=== PATIENT | female | born 1990 | race Caucasian/White ===

== ENCOUNTER 2017-03-03 00:18 | Inpatient (IN) | payer OTHER ==
[~2017-03-03] VITALS: Ht 162.6 cm; Wt 95.5 kg
[~2017-03-03 00:18] MED LIST: CLINDAMYCIN HC300 M1 PO; PERCOCET 325 MG1 TA2 PO; TRAMADOL HCL50 M1 PO
--- NOTE | 2017-03-03 00:21 | NUR ---
PT BIBA ON POLICE PAPER AFTER HAVING FOUND TO HAVE SENT TEXT MESSAGES TO A FRIEND STATING SHE WAS PLANNING ON OVERDOSEING ON XANAS. PT ARRIVES SLIGHTLY AGITATED, DENIES SI/HI AT THIS TIME. SECURITY AT BEDSIDE FOR WANDING.
--- NOTE | 2017-03-03 00:24 | ED AMS/SEIZURE/WEAK/DIZZY ---
History of Present Illness General Chief Complaint: General Adult Stated Complaint: ?OVERDOSE,DENTAL PAIN Source: patient, EMS, police Exam Limitations: no limitations Vital Signs & Intake/Output Vital Signs & Intake/Output Vital Signs Date Time Temp Pulse Resp B/P B/P Pulse O2 O2 Flow FiO2 Mean Ox Delivery Rate 03/03 1018 96.2 90 18 140/81 07 1016 96.2 90 18 140/81 98 03/03 0622 98.0 97 18 137/90 99 Room Air 03/03 0148 98.5 115 20 143/100 07 0105 98.5 115 20 143/100 98 Room Air Allergies Coded Allergies: MDX - Penicillin (PENICILLIN) (Intermediate, DIZZY AND VOMIT 12/07/15) Reconcile Medications Amitriptyline HCl 10 MG TABLET 10 MG PO DAILY HTN (Reported) Amitriptyline HCl 25 MG TABLET 25 MG PO DAILY HTN (Reported) Amlodipine Besylate 2.5 MG TABLET 2.5 MG PO DAILY HTN (Reported) Clindamycin HCl 300 MG CAPSULE 1 CAP PO 4 TIMES/DAY DENTAL INFECTION Clindamycin HCl 300 MG CAPSULE 1 CAP PO TID DENTAL INFECTION OXYCODONE HCL/ACETAMINOPHEN (Percocet 5-325 MG Tablet) 325 MG/5 MG TAB 1-2 TAB PO Q4-6 PRN PRN PAIN Pantoprazole Sodium 40 MG TABLET.DR 40 MG PO DAILY GERD (Reported) Risperidone 0.5 MG TABLET 0.5 MG PO DAILY MENTAL HEALTH (Reported) Sertraline HCl 50 MG TABLET 50 MG PO DAILY MENTAL HEALTH (Reported) Tramadol HCl 50 MG TABLET 1 TAB PO Q6HR PRN PAIN Triage Nurses Notes Reviewed? yes Onset: Gradual Duration: day(s): Injury Environment: home Severity: moderate Modifying Factors: Improves With: rest. Associated Symptoms: dental pain HPI: 26-year-old woman brought in by the police and the ambulance for concern about suicidal ideation and overdose. Per the police, she had sent suicidal text messages to a boyfriend. She also reported taking an overdose of prescription medications, possibly 14 pills. The patient denies this. She states that she has had dental pain in her right lower wisdom tooth. She's been taking ibuprofen to felice her symptoms without significant improvement. She states, "I think it's infected." She denies suicidality, homicidality, hallucinations, other drug abuse. (MIGUEL ADAMS,COSMO Grissom) Past History Travel History Traveled to [place] past 21 day No Medical History Any Pertinent Medical History? see below for history Neurological: NONE EENT: NONE Cardiovascular: NONE Respiratory: NONE Gastrointestinal: NONE Hepatic: NONE Renal: NONE Musculoskeletal: NONE Psychiatric: NONE Endocrine: NONE Blood Disorders: NONE Cancer(s): NONE BOARD FILLER/Reproductive: NONE Surgical History Surgical History: non-contributory Psychosocial History What is your primary language Guyanese Family History Hx Contributory? No (COSMO SHAH MD) Review of Systems Review of Systems Constitutional: Reports: no symptoms. EENTM: Reports: no symptoms. Respiratory: Reports: no symptoms. Cardiovascular: Reports: no symptoms. GI: Reports: no symptoms. Genitourinary: Reports: no symptoms. Musculoskeletal: Reports: no symptoms. Skin: Reports: no symptoms. Neurological/Psychological: Reports: no symptoms. Hematologic/Endocrine: Reports: no symptoms. Immunologic/Allergic: Reports: no symptoms. All Other Systems: Reviewed and Negative (COSMO SHAH MD) Physical Exam Physical Exam General Appearance: well developed/nourished, alert, awake, anxious Head: atraumatic, normal appearance Eyes: Bilateral: normal appearance. Ears, Nose, Throat: normal pharynx, normal ENT inspection Neck: normal inspection, supple, full range of motion Respiratory: normal breath sounds, chest non-tender, no respiratory distress, quiet respiration, lungs clear Cardiovascular: regular rate/rhythm Gastrointestinal: normal bowel sounds, soft, non-tender, no organomegaly Back: normal inspection, normal range of motion Extremities: normal range of motion Neurologic/Psych: no motor/sensory deficits, awake, alert, oriented x 3 Skin: intact, normal color, warm/dry Core Measures ACS in differential dx? No CVA/TIA Diagnosis: No Severe Sepsis Present: No Septic Shock Present: No (COSMO SHAH MD) Progress Differential Diagnosis: alcohol intoxication, drug intoxication, electrolyte imbalance, hypoglycemia Plan of Care: Orders Procedure Date/time Status Regular Diet 03/03 L Active Regular Diet 03/03 B Complete EKG 03/03 1047 Active Lab Add-on Test 03/03 1039 Active Patient Data - inpatient psych 03/03 1037 Active Admit to inpatient psych 03/03 1037 Active TSH REFLEX 03/03 0045 Active LIPID PANEL 03/03 0045 Active GLYCOSYLATED HGB 03/03 0045 Active Continuous Observation Monitor 03/03 0024 Active ED CRISIS PSYCH CONSULT 03/03 0024 Active URINE DRUG SCREEN FOR ER ONLY 03/03 0023 Complete ACETOMINOPHEN 03/03 0023 Active SALICYLATE 03/03 002 Active HUMAN BETA HCG SCREEN 03/03 0023 Active ETHANOL 03/03 0023 Active COMPREHENSIVE METABOLIC PANEL 03/03 002 Active CBC WITHOUT DIFFERENTIAL 03/03 002 Complete EKG 03/03 002 Active Vital Signs 03/03 UNK Active Nursing Misc 03/03 UNK Active CIWA 03/03 UNK Active Alternative Nursing Therapy 03/03 UNK Active Activity/Ambulation 03/03 UNK Active Current Medications Sig/Alexandre Start time Last Medication Dose Stop Time Status Admin Amitriptyline HCl 35 MG AT BEDTIME 03/03 2200 UNVr (Elavil 50 MG Tablet) Baclofen 10 MG Q6P PRN 03/03 1100 UNVr (Lioresal 10MG Tablet) Clonidine 0.1 MG Q6P PRN 03/03 1100 UNVr (Catapres) Dicyclomine HCl 20 MG Q6P PRN 03/03 1100 UNVr (Bentyl) Acetaminophen 650 MG Q6P PRN 03/03 1045 UNVr (Tylenol) Al Hydroxide/Mg 30 ML Q4-6 PRN PRN 03/03 1045 UNVr Hydroxide (Maalox Plus) Gabapentin 300 MG Q6P PRN 03/03 1045 UNVr (Neurontin) Hydroxyzine HCl 50 MG Q6P PRN 03/03 1045 UNVr (Atarax) Lorazepam 2 MG Q2P PRN 03/03 1045 UNVr (Ativan) Lorazepam 1 MG Q2P PRN 03/03 1045 UNVr (Ativan) Magnesium Hydroxide 30 ML AT BEDTIME PRN 03/03 1045 UNVr (Milk Of Magnesia) Risperidone 0.5 MG BID 03/03 1043 UNVr 03/03 (Risperidone) 1059 Folic Acid 1 MG DAILY 03/03 1042 UNVr 03/03 (Folic Acid) 03/05 1001 1059 Multivitamins 1 TAB DAILY 03/03 1042 UNVr 03/03 (Theragran Vitamins) 1059 Thiamine HCl 100 MG DAILY 03/03 1042 UNVr 03/03 (Vitamin B1) 03/05 1001 1059 Amlodipine Besylate 2.5 MG DAILY 03/03 1000 UNVr 03/03 (Norvasc) 1018 Hydroxyzine HCl 50 MG AT BEDTIME NEED.. 03/03 0100 UNVr (Atarax) Clindamycin 300 MG Q6 03/03 0056 UNVr 03/03 (Cleocin 150MG Cap) 0623 Laboratory Tests 03/03/17 0435: Urine Opiates Screen > 4000.00 H, Methadone Screen < 40, Barbiturate Screen < 60, Ur Phencyclidine Scrn < 6.00, Amphetamines Screen < 100, U Benzodiazepines Scrn < 85, Urine Cocaine Screen 698 H, Urine Cannabis Screen < 5.00 03/03/17 0045: Anion Gap 17 H, Estimated GFR > 60, BUN/Creatinine Ratio 11.3, Glucose 109 H, Hemoglobin A1c Pending, Calcium 9.9, Total Bilirubin 0.8, AST 38 H, ALT 50, Alkaline Phosphatase 84, Total Protein 7.5, Albumin 4.7, Globulin 2.8, Albumin/ Globulin Ratio 1.7, Triglycerides 192 H, Cholesterol 177, LDL Cholesterol, Calc 102, HDL Cholesterol 37 L, Cholesterol/HDL Ratio 5 H, TSH &T3 &Free T4 Intrp Pending, Total Beta HCG NEGATIVE, CBC w Diff NO MAN DIFF REQ, RBC 5.12, MCV 86.6 , MCH 29.6, RDW 12.9, MPV 7.6, Gran % 76.3 H, Lymphocytes % 19.2 L, Monocytes % 2.4, Eosinophils % 1.8, Basophils % 0.3, Absolute Granulocytes 9.4 H, Absolute Lymphocytes 2.4, Absolute Monocytes 0.3, Absolute Eosinophils 0.2, Absolute Basophils 0, PUBS MCHC 34.2, Salicylates < 1.0, Acetaminophen < 10.0 L , Serum Alcohol 36.0 Initial ED EKG: normal axis, normal intervals, normal p-waves, normal QRS complex, normal sinus rhythm Hand-Off Endorsed To: DARIUS ADAMS,SARAHI Gaston Endorsed Time: 0700 Pending: consult (MIGUEL ADAMS,COSMO Grissom) Repeat EKG: changed (NO LONGER TACHYCARDIC) Comments: 03/03/2017 11:14:24 AM patient signed out to me by Dr. Shah at shift guide changer. (DARIUS ADAMS,SARAHI Gaston) Departure Departure Disposition: STILL A PATIENT Condition: Stable Referrals: LYNDSEY HARTMAN (PCP/Family) Departure Forms: Customer Survey General Discharge Information Prescriptions: Current Visit Scripts Clindamycin HCl 1 CAP PO 4 TIMES/DAY #30 CAP (MIGUEL ADAMS,COSMO Grissom) Departure Clinical Impression Primary Impression: Depression Qualifiers: Depression Type: unspecified Qualified Code: F32.9 - Major depressive disorder, single episode, unspecified Secondary Impressions: Dental abscess, Polysubstance abuse Psych Admission Note Psychiatric Admission: I have reviewed all the pertinent lab results and diagnostic results. JACKIECHUY Ellis will be admitted to our inpatient Psychiatric unit for treatment and care. (DARIUS ADAMS,SARAHI Gaston)
--- NOTE | 2017-03-03 00:54 | NUR ---
PT CHANGED INTO BLUE SCRUBS. PT PLACED ON MACHINE CLEANER, [facility] AT BEDSIDE FOR PT EVAL
[2017-03-03] MEDS ORDERED: CLINDAMYCIN HC300 M1 PO (00:59)
[2017-03-03 01:05] LABS: ABSOLUTE BASOPHIL COUNT 0 /CUMM (0.0-0.2); ABSOLUTE EOSINOPHIL COUNT 0.2 /CUMM (0.0-0.7); ABSOLUTE GRANULOCYTE CT 9.4 /CUMM (1.4-6.5); ABSOLUTE LYMPH COUNT 2.4 /CUMM (1.2-3.4); ABSOLUTE MONOCYTE COUNT 0.3 /CUMM (0.10-0.60); BASOPHIL % 0.3 % (0.0-2.0); EOSINOPHIL % 1.8 % (0-5); GRANULOCYTE % 76.3 % (42.2-75.2); HEMATOCRIT 44.4 % (37-47); MEAN CORPUSCULAR HGB 29.6 PG (27.0-31.0); MEAN CORPUSCULAR HGB CONC 34.2 G/DL (33.0-37.0); MEAN CORPUSCULAR VOLUME 86.6 FL (81.0-99.0); MEAN PLATELET VOLUME 7.6 FL (7.4-10.4); PLATELET COUNT 285 /CUMM (130-400); RBC DISTRIBUTION WIDTH 12.9 % (11.5-14.5); RED BLOOD CELL CT 5.12 /CUMM (4.20-5.40); WHITE BLOOD CELL COUNT 12.3 /CUMM (4.8-10.8)
--- NOTE | 2017-03-03 01:14 | NUR ---
PT MEDICATED WITH ACTIVATED CHARCOAL PER EMAR
--- NOTE | 2017-03-03 01:49 | NUR ---
PT MEDICATED PER EMAR. PT REMAINS ST ON GRINDING WHEEL FACER. PT PROVIDED WITH BOXED LUNCH AND WATER
--- NOTE | 2017-03-03 02:05 | NUR ---
PT MOTHER TOOK ALL OF PTS VALUABLES HOME
--- NOTE | 2017-03-03 03:01 | NUR ---
PT ASLEEP AT THIS TIME W/RR NOTED. PT REMAINS ON HELICOPTER MECHANIC. NAD. SITTER IN ATTENDANCE.
[2017-03-03] MEDS ORDERED: AMITRIPTYLINE H10 M2 PO (04:01)
[2017-03-03] MEDS ORDERED: AMITRIPTYLINE H25 M2 PO (04:02)
[2017-03-03] MEDS ORDERED: RISPERIDONE0.5 M1 PO (04:02)
[2017-03-03] MEDS ORDERED: PANTOPRAZOLE SO40 M1 PO (04:03)
[2017-03-03] MEDS ORDERED: AMLODIPINE BES2.5 M1 PO (04:03)
[2017-03-03] MEDS ORDERED: SERTRALINE HCL50 MG PO (04:03)
--- NOTE | 2017-03-03 05:21 | NUR ---
PATIENT AWAKE, REQUESTING RN TO LOOK AT BLOOD DRAW SITE. PATIENT NOTED W/ SLIGHT BRUISING TO RIGHT AC, APPROX SIZE OF HALF DOLLAR COIN. DENIES PAIN W/ PALP TO SITE, ABLE TO BEND ARM W/O DIFFICULTY. WILL CONTINUE TO MONITOR. PATIENT RETURNS TO RESTING COMFORTABLY ON STRETCHER AT THIS TIME, REGULAR RESPIRATIONS. AWAITING CRISIS EVAL THIS AM.
--- NOTE | 2017-03-03 06:22 | NUR ---
AWOKE PATIENT FROM SLEEP TO MEDICATE W/ CLEOCIN PER EMAR. TOLERATED WELL. CALM AND COOPERATIVE.
--- NOTE | 2017-03-03 07:03 | NUR ---
ASSUMED CARE OF PT WHO IS CURRENTLY SLEEPING. RR EVEN AND UNLABORED. WAITING FOR INITIAL CRISIS EVALUATION
--- NOTE | 2017-03-03 08:14 | NUR ---
MOTHER DID NOT TAKE VALUABLES HOME, ONE BAG WITH PHONE, DRAFTER AND CIGARETTES PLACED IN SAFE
--- NOTE | 2017-03-03 08:20 | NUR ---
PT EATING BREAKFAST TRAY
--- NOTE | 2017-03-03 09:22 | NUR ---
PT AWAKE AND ALERT IN LUGO D. PT HAS NO COMPLAINTS AT THIS TIME. WAITING FOR CRISIS EVALUATION.
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
--- NOTE | 2017-03-03 10:21 | NUR ---
PT MEDICATED WITH NORVASC 2.5 MG PO
--- NOTE | 2017-03-03 11:32 | NUR ---
REPORT GIVEN TO DEBATE DIRECTOR. TRANSPORT BOOKED AT THIS TIME.
--- NOTE | 2017-03-03 11:35 | NUR ---
NICOTINE PATCH APPLIED TO RIGHT UPPER ARM
--- NOTE | 2017-03-03 11:45 | IP CRISIS DIAG ASSESS PSYCH ---
Diagnostic Assessment Basic Assessment Insurance Authorization: Insurance #1: Insurance name: DAVID Gaston [employer] Phone number: Policy number: [id number] Group number: Authorization number: Pended Authorization # Client Authorization # Type of Request [id number] INITIAL Primary Care Physician: Patient's PCP: LYNDSEY HARTMAN PCP's Patient's Quote: "I was upset last night and it was taken out of proportion." Present Illness: Pt is 26 yo single female brougt in on a PEER for SI texts made to a friend. The PEER reads" pt texted friend stating she was an awful person and took 14 prescription pills. She claims to have taken ibuprofen and had 2 nips, she smells of alcoholic beverages. She stated I am sorry forever she is going to sleep. " UTOX was positive for cocaine and opiates and ETOH was .36 on 03/03/17 @ 1 am . 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 Pt noted she took unprescribed percocet for her tooth pain. Pt said the whole thing was taken out or proportion as this boy is an ex and used to be controlling. She discloses drinking a " 6 pack every now and then." She said she needs to get a wisdon tooth taken out " but needs a special referral." She denies SI/HI/AVH at present and would like to go home as she has an appt with [facility] tomorrow 03/04. Pt denies hx of SI. Per records, she had psychiatric related visits for anxiety in March 2008, March 2009, May 2009 and ETOH/drug and SI in October 2007 ( alcohol and superficial cutting after break up w/ ex boyfriend). She has no inpatient hospitalizations. Pt is in tx with [facility] for past 3 years and has hx of treatment with [facility] in 2008. Per pt report, she is on risperidone, vistaril, antriptylyne and a blood pressure medication. Last night the ED ordered charcoal, cleocin 150 mg, atarax and norvasc. She lives at home with her mom and is not currently working. care : Primary DX is panic disorder, GED, OCD, dysthymia. Karine Martins 03/04 @ 10:30. [facility] will recommend IOP and add substance use dx to their records. Next medicaton appt with Kianna Barnett FINISHER POLISHER is 03/08 @ 2pm. Annamaria is concerned she might need inpatient as the substance abuse might be new howevere pt is on Naltrexone 50 mg 1 x day, amitriptylyne 10 mg at bed time, rsiperidone 0.5mg 2x day, vistiral 50 mg 3x day as needed. This insurance underwriter sales faxed care TOMAS 10AM This insurance underwriter sales consulted the case with Dr. Andrews and recommends inpatient hospitalization. Patient's Address: [address] [place] [address] Other Phone Number: Who Do You Live With? Mother Feel Safe Where You Live? Yes Feel Safe in Your Relationship Yes Marital Status: single Do You Have Children? No Primary Language? Croatian Language(s) Spoken At Home: Croatian Family/Informants Interviewed: Claire- Mother. Mom reports no concerns with her daughter. She said she thinks she " just talks to crazy people." Mom said she feels daughter is safe to come home as they live together and do most daily activities together . Mom says her daughter has never hurt herself in the past and is seen at [facility] for anxiety and panic attacks. Allergies - Coded Allergies: Penicillins (Intermediate, DIZZY AND VOMIT 03/03/17) Current Medications - Scheduled Medications Amitriptyline HCl 10 MG TABLET 10 MG PO DAILY HTN #30 (Reported) Entered as Reported by CLAY CASEY on 03/03/17 0401 Amitriptyline HCl 25 MG TABLET 25 MG PO DAILY HTN #30 (Reported) Entered as Reported by CLAY CASEY on 03/03/17 0402 Amlodipine Besylate 2.5 MG TABLET 2.5 MG PO DAILY HTN #30 (Reported) Entered as Reported by CLAY CASEY on 03/03/17 0403 Clindamycin HCl 300 MG CAPSULE 1 CAP PO 4 TIMES/DAY DENTAL INFECTION #30 CAP Prescribed by LATOSHA RIVERA MD on 03/03/17 Clindamycin HCl 300 MG CAPSULE 1 CAP PO TID DENTAL INFECTION #30 CAP Prescribed by KEVIN FOSS on 12/07/15 Pantoprazole Sodium 40 MG TABLET.DR 40 MG PO DAILY GERD #28 (Reported) Entered as Reported by CLAY CASEY on 03/03/17 0403 Risperidone 0.5 MG TABLET 0.5 MG PO DAILY MENTAL HEALTH #60 (Reported) Entered as Reported by CLAY CASEY on 03/03/17 0402 Sertraline HCl 50 MG TABLET 50 MG PO DAILY MENTAL HEALTH #30 (Reported) Entered as Reported by CLAY CASEY on 03/03/17 0403 Scheduled PRN Medications OXYCODONE HCL/ACETAMINOPHEN (Percocet 5-325 MG Tablet) 325 MG/5 MG TAB 1-2 TAB PO Q4-6 PRN PRN PAIN #20 TAB Prescribed by CAYLA LEO MD on 06/10/15 Tramadol HCl 50 MG TABLET 1 TAB PO Q6HR PRN PAIN #10 Prescribed by KEVIN FOSS on 12/07/15 Past History Past Surgical History Surgical History TONSILECTOMY UPPER WIDSOM TOOTH REMOV Abuse/Trauma History Trauma History/Current Trauma: Denies Legal History Current Legal Status: none Have you ever been arrested? 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 Physical Limitations (Interventions): NA Psychiatric Treatment History Psych Treatment Psychiatric Treatment Yes Inpatient Treatment No Outpatient Treatment Yes Location of Treatment [facility] Reason for Treatment anxiety, panic and depression Dates of Treatment 2008- present Response to Treatment fair Diagnosis by History: anxiety , panic and depression Risk Factors: high anxiety/distress, substance abuse, poor impulse control Substance Use/Abuse History Drug Use/Abuse minimum 12mo Hx Substances Used/Abused Yes Substance Used/Abused Alcohol First Use 11 yo Last Used last night How much used/taken per pt report " occasionally" How often socially For how long " on and off" Route of use oral Substance Abuse Treatment Substance Abuse Treatment Past Substance Abuse [place] No Inpatient Treatment No Outpatient Treatment No Comments: Pt denies having substance abuse issues. Sexual History Sexually Active Yes # of partners 1 Sexual Orientation Heterosexual Use of Protection No Sexual Concerns: denies Education History Highest Level of Education: 8th grade, pt said she dropped out due to bullying for being "stupid". Preferred Learning Style: visual Current Mental Status Mental Status Orientation: Person, Place, Situation Affect: WNL Speech: WNL Neuro-vegetative: WNL Appearance Appearance- Dress/Hygiene: Pt is dressed in blue hospital gown, disheveled long black hair, eye brow piercings and lip piercing. Behaviors Thought Process: WNL Thought Content: WNL Memory: WNL Insight: Poor SI/HI Risk Assessment - Minimum 6mo History- Past Suicidal Ideation/Attempts Yes Current Suicidal Ideation/Att No Past Homicidal Ideation/Att: No Current Homicidal Ideation/Attempts No Degree of Intent: Thoughts/No Intent Danger To: Self Gravely Disabled: Lack of Insight, Poor Impulse Control, Poor Judgment Risk Factors: high anxiety/distress, substance abuse, poor impulse control Lethality Ratin Needs/Init TX Plan/Goals: Mood stabilization and safety, group and individual therapy, family session, psychoeducation, subtance abuse education, medication evaluation and coping skills. 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
--- NOTE | 2017-03-03 11:54 | SOCIAL WORKER SOCIAL HX PSYCH ---
Social History Basic Assessment Insurance Authorization: Insurance #1: Insurance name: DAVID Gaston [employer] Phone number: Policy number: [id number] Group number: Authorization number: Curr Source of Income/Entitlements: food stamps, gregory assistance and food stamps Primary Care Physician: Patient's PCP: LYNDSEY HARTMAN PCP's Present Problem: t is 26 yo single female brougt in on a PEER for SI texts made to a friend. The PEER reads" pt texted friend stating she was an awful person and took 14 prescription pills. She claims to have taken ibuprofen and had 2 nips, she smells of alcoholic beverages. She stated I am sorry forever she is going to sleep. " UTOX was positive for cocaine and opiates and ETOH was .36 on 03/03/17 @ 1 am . 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 Pt noted she took unprescribed percocet for her tooth pain. Pt said the whole thing was taken out or proportion as this boy is an ex and used to be controlling. She discloses drinking a " 6 pack every now and then." She said she needs to get a wisdon tooth taken out " but needs a special referral." She denies SI/HI/AVH at present and would like to go home as she has an appt with [facility] tomorrow 03/04. Pt denies hx of SI. Per records, she had psychiatric related visits for anxiety in March 2008, March 2009, May 2009 and ETOH/drug and SI in October 2007 ( alcohol and superficial cutting after break up w/ ex boyfriend). She has no inpatient hospitalizations. Pt is in tx with [facility] for past 3 years and has hx of treatment with [facility] in 2008. Per pt report, she is on risperidone, vistaril, antriptylyne and a blood pressure medication. Last night the ED ordered charcoal, cleocin 150 mg, atarax and norvasc. She lives at home with her mom and is not currently working. care : Primary DX is panic disorder, GED, OCD, dysthymia. Karine Martins 03/04 @ 10:30. [facility] will recommend IOP and add substance use dx to their records. Next medicaton appt with Kianna Barnett APRN is 03/08 @ 2pm. Annamaria is concerned she might need inpatient as the substance abuse might be new howevere pt is on Naltrexone 50 mg 1 x day, amitriptylyne 10 mg at bed time, rsiperidone 0.5mg 2x day, vistiral 50 mg 3x day as needed. This blurb writer faxed [facility] TOMAS 10AM This blurb writer consulted the case with Dr. Andrews and recommends inpatient hospitalization. Primary Language? Montserratian Language(s) Spoken At Home: Montserratian Living Situation Rents or Owns Home? rents Other Living Arrangement: relative's/guardian's sushil Feel Safe Where You Are Living Yes Feel Safe in Relationships? Yes Allergies - Coded Allergies: Penicillins (Intermediate, DIZZY AND VOMIT 03/03/17) Current Medications - Scheduled Medications Amitriptyline HCl 10 MG TABLET 10 MG PO DAILY HTN #30 (Reported) Entered as Reported by CLAY CASEY on 03/03/17 040 Amitriptyline HCl 25 MG TABLET 25 MG PO DAILY HTN #30 (Reported) Entered as Reported by CLAY CASEY on 03/03/17 040 Amlodipine Besylate 2.5 MG TABLET 2.5 MG PO DAILY HTN #30 (Reported) Entered as Reported by CLAY CASEY on 03/03/17 040 Clindamycin HCl 300 MG CAPSULE 1 CAP PO 4 TIMES/DAY DENTAL INFECTION #30 CAP Prescribed by LATOSHA RIVERA MD on 03/03/17 Clindamycin HCl 300 MG CAPSULE 1 CAP PO TID DENTAL INFECTION #30 CAP Prescribed by KEVIN FOSS on 12/07/15 Pantoprazole Sodium 40 MG TABLET. 40 MG PO DAILY GERD #28 (Reported) Entered as Reported by CLAY CASEY on 03/03/17 040 Risperidone 0.5 MG TABLET 0.5 MG PO DAILY MENTAL HEALTH #60 (Reported) Entered as Reported by CLAY CASEY on 03/03/17 040 Sertraline HCl 50 MG TABLET 50 MG PO DAILY MENTAL HEALTH #30 (Reported) Entered as Reported by CLAY CASEY on 03/03/17 040 Scheduled PRN Medications OXYCODONE HCL/ACETAMINOPHEN (Percocet 5-325 MG Tablet) 325 MG/5 MG TAB 1-2 TAB PO Q4-6 PRN PRN PAIN #20 TAB Prescribed by CAYLA LEO MD on 06/10/15 Tramadol HCl 50 MG TABLET 1 TAB PO Q6HR PRN PAIN #10 Prescribed by KEVIN FOSS on 12/07/15 Past History Past Medical History Neurological: NONE EENT: NONE Cardiovascular: hypertension Respiratory: NONE Gastrointestinal: NONE Hepatic: NONE Renal: NONE Musculoskeletal: NONE Psychiatric: NONE Endocrine: diabetes Blood Disorders: NONE Cancer(s): NONE LEAD CARE MANAGER/Reproductive: NONE Past Surgical History Surgical History: non-contributory /Family History Place/Country of Origin: [place], [place] Childhood Family Constellation: Pt notes a good child dueñas Primary Childhood Caretakers: mother Family Life During Childhood: Pt reports having a " normal" childhood DCF Involvement? No Mother's Age (Current/): 58 Relationship w/Mother: excellent Relationship w/Father: father when she was 7 Any Sibling(s)? Yes Relationship w/Sibling(s): Pt reports 5 sisters and 2 brothers, she is the youngest. Relationship w/Friends: Good Family Psych/Sub Abuse/Add Hx: diagnosis Number of Pregnancies: 1 Number of Miscarriages: 0 Number of Abortions: 1 Other Comments: Pt reports 1 last year as she was not in a good place. Abuse/Trauma History Trauma History/Current Trauma: Denies Legal History Legal Guardian/Address/Phone: NA Current Legal Status: none Pending Court Dates: denies Have you ever been arrested No Number of Arrests: 0 Hx of Juvenile Legal Charges? No Hx of Adult Legal Charges? 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 Weaknesses: Susbtance abuse Physical Limitations (Interventions): NA Last Physical: unknown History of Seizures? No History of Blackouts? No ADL Limitations: denies Steinauer/Social/Peer Relations limited Meaningful Activities: denies Childhood Scientologist: no orthodoxy stated Current Mandaeism Affiliation: no orthodoxy stated Is Spirituality Important to You? none stated Cultural/Ethnic Issues: denies Are There Developmental Issues? No Milestones Achieved: fine motor, gross motor Psychiatric Treatment History Psych Treatment Inpatient Treatment No Outpatient Treatment Yes Location of Treatment [facility] Reason for Treatment anxiety, panic and depression Dates of Treatment 2009- present Response to Treatment fair Current Mine Environmental Engineer: [facility] Kianna Barnett APRN Treatment of Prior Episodes: [facility] Diagnosis: anxiety , panic and depression Psychodynamic Issues: none stated Risk Factors: high anxiety/distress, substance abuse, poor impulse control Substance Use/Abuse History Drug Use/Abuse Substance Used/Abused Alcohol First Use 11 yo Last Used last night How much used/taken per pt report " occasionally" How often socially For how long " on and off" Route of use oral Have Had Periods of Sobriety? No Explain: Pt denies substance abuse issues Relapse History? No Explain: Pt denies susbtance abuse issues Have You Ever Attended AA? No Do You Attend AA Currently? No Do You Have a Sponsor? No Other Community Resources Used: none Substance Abuse Treatment Substance Abuse Treatment Inpatient Treatment No Outpatient Treatment No Sexual History Sexually Active Yes # of partners 1 Sexual Orientation Heterosexual Use of Protection No Sexual Concerns: denies Education History Highest Level of Education: 8th grade, pt said she dropped out due to bullying for being "stupid". Highest Grade Completed: 8th Vocational Year Completed: na Number of College Years: 0 College Degree/Major: na Other Degree(s): na Preferred Learning Style: visual HX of Learning Difficulties: Learning Disabilities Barriers to Learning: None reported Special Communication Needs: None reported Employment History Employment Unemployed Not in Labor Force: Disabled Vocation/Occupational Hx: [employer] [id number] No. of Jobs in Last 5 Years: 1 Attendance: Normal Performance: Average History Have You Been in The ? No Current Mental Status Mental Status Orientation: Person, Place, Situation Affect: WNL Speech: WNL Neuro-vegetative: WNL Appearance Appearance- Dress/Hygiene: Pt is dressed in blue hospital gown, disheveled long black hair, eye brow piercings and lip piercing. Behaviors Thought Process: WNL Thought Content: WNL Memory: WNL Insight: Poor SI/HI Risk Assessment Past Suicidal Ideation/Attempts Yes Current Suicidal Ideation/Att No Past Homicidal Ideation/Att: No Current Homicidal Ideation/Attempts No Degree of Intent: Thoughts/No Intent Danger To: Self Gravely Disabled: Lack of Insight, Poor Impulse Control, Poor Judgment Risk Factors: High Anxiety/Distress, Hx of suicide attempt(s), Poor impulse control, Substance Abuse Lethality Ratin - Conclusion and Recommendations for treatment - and discharge planning Summary: t is 26 yo single female brougt in on a PEER for SI texts made to a friend. The PEER reads" pt texted friend stating she was an awful person and took 14 prescription pills. She claims to have taken ibuprofen and had 2 nips, she smells of alcoholic beverages. She stated I am sorry forever she is going to sleep. " UTOX was positive for cocaine and opiates and ETOH was .36 on 03/03/17 @ 1 am . 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 Pt noted she took unprescribed percocet for her tooth pain. Pt said the whole thing was taken out or proportion as this boy is an ex and used to be controlling. She discloses drinking a " 6 pack every now and then." She said she needs to get a wisdon tooth taken out " but needs a special referral." She denies SI/HI/AVH at present and would like to go home as she has an appt with [facility] tomorrow 03/04. Pt denies hx of SI. Per records, she had psychiatric related visits for anxiety in March 2008, March 2009, May 2009 and ETOH/drug and SI in October 2007 ( alcohol and superficial cutting after break up w/ ex boyfriend). She has no inpatient hospitalizations. Pt is in tx with [facility] for past 3 years and has hx of treatment with [facility] in 2008. Per pt report, she is on risperidone, vistaril, antriptylyne and a blood pressure medication. Last night the ED ordered charcoal, cleocin 150 mg, atarax and norvasc. She lives at home with her mom and is not currently working. care : Primary DX is panic disorder, GED, OCD, dysthymia. Karine Martins 03/04 @ 10:30. [facility] will recommend IOP and add substance use dx to their records. Next medicaton appt with Kianna Barnett APRN is 03/08 @ 2pm. Annamaria is concerned she might need inpatient as the substance abuse might be new howevere pt is on Naltrexone 50 mg 1 x day, amitriptylyne 10 mg at bed time, rsiperidone 0.5mg 2x day, vistiral 50 mg 3x day as needed. This blurb writer faxed [facility] TOMAS 10AM This blurb writer consulted the case with Dr. Andrews and recommends inpatient hospitalization.
[2017-03-03 12:14] VITALS: BP 144/86
[2017-03-03] MEDS ORDERED: HYDROXYZINE PAM50 M1 PO (14:31)
--- NOTE | 2017-03-03 15:00 | NUR ---
ADMITTED FROM ED ON PEC FOR UNSPECIFIED BIPOLAR. ALEDGED TO HAVE TEXTED FRIEND ABOUT OVERDOSING ON XANAX. STATES SHE WAS MISUNDERSTOOD AND IT GOT BLOWN OUT OF PROPORTION. DENIES CURRRENT OR PREVIOUS SI. DENIES USE OF DRUGS AND ETOH. BLAMES ETOH LEVEL ON SMALL AMOUNT OF ETOH ON February. CREDITS OPIATE LEVEL TO TAKING A PERCOSET FOR DENTAL PAIN AND HAS NO EXPLAINATION FOR COCAINE LEVEL. IS IN TREATMENT AT [facility] FOR ANXIETY, PANIC D/O AND OCD. MEDICAL HX OF HTN DENIES ANY HX OF DM.
[2017-03-03 16:22] VITALS: BP 147/85
--- NOTE | 2017-03-03 19:20 | NUR ---
1200 CLINDAMYCIN NOT AVAILABLE AT SCHEDULED TIME PER DAY MED NURSE TUCKER. T/C TO PHARMACY AT APPROX. 1510. DOSE ADMINISTERED AT 1540, WHEN AVAILABLE FROM PHARMACY.
[2017-03-03 20:09] VITALS: BP 150/85
--- NOTE | 2017-03-03 20:57 | NUR ---
PT IS VISIBLE ON UNIT, SITTING QUIETLY IN LOUNGE AND MOSTLY STAYING TO HERSELF. PT IS ALSO SPENDING TIME WITH VISITORS IN KITCHEN WHICH SHE APPEARED TO ENJOY. COOPERATIVE AND COMPLIANT WITH STAFF. NO COMPLAINTS OR SI REPORTED. PT HAS A STABLE MOOD AND ANXIOUS AFFECT.
--- NOTE | 2017-03-04 04:23 | NUR ---
SLEPT WELL. OUT O9F BED TO BATHROOM ONCE.
[2017-03-04 08:15] VITALS: BP 141/93
--- NOTE | 2017-03-04 11:31 | NUR ---
PT IS ATTENDING GROUPS AND REPORTED FEELING ANXIOUS TODAY. SHE DENIES THOUGHTS OF SUICIDE OR SELF HARM AND IS HOPING IT WILL BE A SHORT STAY TO ADJUST HER MEDS.SHE IS PLEASANT WITH STAFF AND PEERS
--- NOTE | 2017-03-04 12:03 | Cons- Medical ---
General Information and HPI Consulting Request Date of Consult: 03/04/17 Requested By: KEENAN ADAMS,DESTINY Flores Reason for Consult: Medical H&P Source of Information: patient, old records Exam Limitations: no limitations History of Present Illness: 26-year-old female past medical history of hypertension follows with the nurse practitioner at [facility] and a history of bipolar disorder who is here with acute depressive symptoms and suicidal ideation. She denies any active drug use, says she had one drink on the February but denies alcohol use and says she smokes half a pack a day. She says she was fairly recently diagnosed with hypertension by the nurse practitioner she attributes it to all of her weight gain and takes Norvasc for it. She denies chest pain shortness of breath cough sputum or any other complaints. Allergies/Medications Allergies: Coded Allergies: Penicillins (Intermediate, DIZZY AND VOMIT 03/03/17) Home Med List: Amitriptyline HCl 10 MG TABLET 10 MG PO DAILY MENTAL HEALTH (Reported) Amitriptyline HCl 25 MG TABLET 25 MG PO DAILY MENTAL HEALTH (Reported) Amlodipine Besylate 2.5 MG TABLET 2.5 MG PO DAILY HTN (Reported) Clindamycin HCl 300 MG CAPSULE 1 CAP PO 4 TIMES/DAY DENTAL INFECTION Hydroxyzine Pamoate 50 MG CAPSULE 50 MG PO TID PRN ANXIETY/INSOMNIA (Reported ) Risperidone 0.5 MG TABLET 0.5 MG PO DAILY MENTAL HEALTH (Reported) Current Medications: Current Medications Sig/Alexandre Start time Last Medication Dose Route Stop Time Status Admin Acetaminophen 650 MG Q6P PRN 03/03 1045 AC 03/03 PO 1438 Al Hydroxide/Mg 30 ML Q4-6 PRN PRN 03/03 1045 AC 03/03 Hydroxide PO 2201 Amitriptyline HCl 35 MG AT BEDTIME 03/03 2200 AC 03/03 PO 2159 Amlodipine Besylate 2.5 MG DAILY 03/03 1000 AC 03/04 PO 1015 Baclofen 10 MG Q6P PRN 03/03 1100 AC PO Clindamycin 300 MG Q6 03/03 0056 AC 03/04 PO 0715 Clonidine 0.1 MG Q6P PRN 03/03 1100 AC PO Dicyclomine HCl 20 MG Q6P PRN 03/03 1100 AC PO Folic Acid 1 MG DAILY 03/03 1042 AC 03/04 PO 03/05 1001 1015 Gabapentin 300 MG Q6P PRN 03/03 1045 AC 03/03 PO 2056 Hydroxyzine HCl 50 MG Q6P PRN 03/03 1045 AC 03/03 PO 1832 Hydroxyzine HCl 50 MG AT BEDTIME NEED.. 03/03 0100 AC 03/03 PO 2201 Lorazepam 2 MG Q2P PRN 03/03 1045 AC PO Lorazepam 1 MG Q2P PRN 03/03 1045 AC PO Magnesium Hydroxide 30 ML AT BEDTIME PRN 03/03 1045 AC PO Multivitamins 1 TAB DAILY 03/03 1042 AC 03/04 PO 1015 Nicotine 7 MG DAILY 03/04 1157 UNVr TOP Risperidone 0.5 MG BID 03/03 1043 AC 03/04 PO 1015 Thiamine HCl 100 MG DAILY 03/03 1042 AC 03/04 PO 03/05 1001 1015 Review of Systems Review of Systems Constitutional: Denies: no symptoms, chills, diaphoresis. Cardiovascular: Denies: no symptoms, chest pain, edema. Respiratory: Denies: no symptoms, cough, hemoptysis. GI: Denies: no symptoms, abdominal pain, bloating, constipation. All Other Systems: Reviewed and Negative Past History Travel History Traveled to [place] past 21 day No Medical History Neurological: NONE EENT: NONE Cardiovascular: hypertension Respiratory: NONE Gastrointestinal: NONE Hepatic: NONE Renal: NONE Musculoskeletal: NONE Psychiatric: NONE Endocrine: NONE Blood Disorders: NONE Cancer(s): NONE STAFF RESEARCH SCIENTIST/Reproductive: NONE Surgical History Surgical History: non-contributory Psychosocial History Where Do You Live? Home Smoking Status: Current Everyday Smoker Other Social History: Patient lives at home with her mother. She says her father of an aneurysm in her mother is alive. She says that she uses the Depakote shot for contraception and ever since then she's had very spotty irregular periods. She is monogamous with a single partner and has no children. Employment History Employment: Unemployed Profession/Employer: [phone] Exam & Diagnostic Data Last 24 Hrs of Vital Signs/I&O Vital Signs Date Time Temp Pulse Resp B/P B/P Pulse O2 O2 Flow FiO2 Mean Ox Delivery Rate 03/04 1015 98.4 93 18 141/93 03/04 0815 98.4 93 141/93 03/03 2009 98.4 98 150/85 03/03 1622 94 147/85 03/03 1214 97.9 92 144/86 Physical Exam General Appearance: well developed/nourished, no apparent distress, alert, awake Head: atraumatic, normal appearance Eyes: Bilateral: normal appearance, PERRL, EOMI. Ears, Nose, Throat: normal pharynx, normal ENT inspection Neck: normal inspection, supple, full range of motion Respiratory: normal breath sounds, chest non-tender Cardiovascular: regular rate/rhythm Gastrointestinal: normal bowel sounds, soft, non-tender Back: normal inspection, normal range of motion Neurologic/Psych: no motor/sensory deficits, awake, alert, oriented x 3, normal gait Skin: intact, normal color, warm/dry Other Physical Findings: cranial nerves 3-12 are grossly intact. Reflexes are 2+ and symmetric. No motor or sensory deficit appreciated. Last 24 Hrs of Labs/Pavel: Intake & Output 03/04 0400 03/03 04003/02 0400 Intake Total Output Total Balance Patient 210 lb 217 lb Weight Weight Estimated Measurement Method Laboratory Tests 03/03 03/03 0435 0045 Chemistry Sodium (137 - 145 mmol/L) 142 Potassium (3.5 - 5.1 mmol/L) 4.1 Chloride (98 - 107 mmol/L) 109 H Carbon Dioxide (22 - 30 mmol/L) 15 L Anion Gap (5 - 16) 17 H BUN (7 - 17 mg/dL) 9 Creatinine (0.5 - 1.0 mg/dL) 0.8 Estimated GFR (>60 ml/min) > 60 BUN/Creatinine Ratio (7 - 25 %) 11.3 Glucose (65 - 99 mg/dL) 109 H Hemoglobin A1c (4.2 - 5.8 %) 5.1 Calcium (8.4 - 10.2 mg/dL) 9.9 Total Bilirubin (0.2 - 1.3 mg/dL) 0.8 AST (14 - 36 U/L) 38 H ALT (9 - 52 U/L) 50 Alkaline Phosphatase (<127 U/L) 84 Total Protein (6.3 - 8.2 g/dL) 7.5 Albumin (3.5 - 5.0 g/dL) 4.7 Globulin (1.9 - 4.2 gm/dL) 2.8 Albumin/Globulin Ratio (1.1 - 2.2 %) 1.7 Triglycerides (<150 mg/dL) 192 H Cholesterol (<200 MG/DL) 177 LDL Cholesterol, Calc (65 - 129 mg/dL) 102 HDL Cholesterol (40 - 60 mg/dL) 37 L Cholesterol/HDL Ratio (0.00 - 4.23 %) 5 H Free T4 (0.79 - 2.35 ng/dL) 1.52 Total T3 (0.97 - 1.69 ng/mL) 1.57 TSH &T3 &Free T4 Intrp (0.270 - 4.20 uIU/mL) 5.150 H Total Beta HCG (NEGATIVE) NEGATIVE Hematology CBC w Diff NO MAN DIFF REQ WBC (4.8 - 10.8 /CUMM) 12.3 H RBC (4.20 - 5.40 /CUMM) 5.12 Hgb (12.0 - 16.0 G/DL) 15.2 Hct (37 - 47 %) 44.4 MCV (81.0 - 99.0 FL) 86.6 MCH (27.0 - 31.0 PG) 29.6 RDW (11.5 - 14.5 %) 12.9 Plt Count (130 - 400 /CUMM) 285 MPV (7.4 - 10.4 FL) 7.6 Gran % (42.2 - 75.2 %) 76.3 H Lymphocytes % (20.5 - 51.1 %) 19.2 L Monocytes % (1.7 - 9.3 %) 2.4 Eosinophils % (0 - 5 %) 1.8 Basophils % (0.0 - 2.0 %) 0.3 Absolute Granulocytes (1.4 - 6.5 /CUMM) 9.4 H Absolute Lymphocytes (1.2 - 3.4 /CUMM) 2.4 Absolute Monocytes (0.10 - 0.60 /CUMM) 0.3 Absolute Eosinophils (0.0 - 0.7 /CUMM) 0.2 Absolute Basophils (0.0 - 0.2 /CUMM) 0 PUBS MCHC (33.0 - 37.0 G/DL) 34.2 Toxicology Salicylates (0 - 20.0 mg/dL) < 1.0 Urine Opiates Screen (>2000 NG/ML) > 4000.00 H Methadone Screen (>300 NG/ML) < 40 Acetaminophen (10.0 - 30.0 ug/mL) < 10.0 L Barbiturate Screen (>200 NG/ML) < 60 Ur Phencyclidine Scrn (>25 NG/ML) < 6.00 Amphetamines Screen (>1000 NG/ML) < 100 U Benzodiazepines Scrn (>200 NG/ML) < 85 Urine Cocaine Screen (>300 NG/ML) 698 H Urine Cannabis Screen (>50 NG/ML) < 5.00 Serum Alcohol (<10 MG/DL) 36.0 Assessment/Plan Assessment/Plan 26-year-old young woman past medical history of hypertension on Norvasc 2.5 mg a day was here with depressive symptoms. I would continue the Norvasc 2.5 and she needs close outpatient follow-up with her nurse practitioner at [facility] given her extremely young age of this diagnosis of hypertension. She denies drug use but her U tox is positive for cocaine and opiates in that setting I would obviously avoid all beta blockers. I've talked to her about tobacco cessation and she is requesting a nicotine patch which I will order. Problem List: 1. Depression 2. Polysubstance abuse Consult Acknowledgment - Thank you for your consult request.
[2017-03-04 12:18] VITALS: BP 138/72
--- NOTE | 2017-03-04 14:28 | SOCIAL WORKER PROG NOTE PSYCH ---
Social Work Progress Note Progress Note Josseline shared that this whole situation is due to pain from a wisdom tooth that needs to be pulled. She reported that she was texting a friend out of state and shared that she had some drinks and Ibuprofen. She then left the phone to work on doing dishes and the next thing she knew the police showed up at her house and wanted her to come in for an evaluation. She reports that she had 2 drinks that day. She denied being suicidal or depressed and said that her friend "over exaggerated" and blew the situation "out of proportion." She reports issues related to anxiety and said she follows up at [facility]. She has been seeing a therapist and prescriber there for 3 years. On the 01 of March she also indicated that she had been drinking. She kept indicating that she normally doesn't drink, but did due to the holiday celebration. I asked about the cocaine that showed up in her tox screen? She doesn't recall the use, and states she doesn't remember the circumstances. She denies having a hx of using cocaine. She reported if she used it was a "random thing." I asked if she blacked out? She said no. She lives with Mom and her neice 24 lives in an apartment upstairs from her. She was open to having her Mom come in for a family meeting. She signed a release for [facility] so I can get her follow up appts. Our meeting was cut on the short side, due to the medical doctor being here to see her. I called her Mother Ms. Alonzo. She is available to come in on Tuesday at 11am. I told her that Josseline may be discharged Tuesday per discussion in team meeting this morning. She was pleased to hear that and stated Josseline helps her out alot at home due to her COPD. Called [facility]. They had no substance hx in their system on her. Got a follow up appt. with Karine Martins (therapist) for 03/09 at 11:30 and appt. with Kianna Barnett APRN for 03/08 at 2pm.
[2017-03-04 16:20] VITALS: BP 148/91
--- NOTE | 2017-03-04 18:08 | NUR ---
PT IS CALM, COOPERATIVE WITH STAFF AND PEERS, AND COMPLIANT WITH UNIT RULES. OFTEN IN [place], THOUGH SLIGHTLY WITHDRAWN. WILL INTERACT WITH OTHERS AT TIMES. MOOD IS STABLE, AFFECT APPEARS EUTHYMIC TO FULL RANGE, COMMUNICATION IS ORGANIZED AND APPEARS NORMAL IN ALL RESPECTS, AND APPETITE IS NORMAL. PT DENIES SI AT THIS TIME.
[2017-03-04 20:03] VITALS: BP 149/78
--- NOTE | 2017-03-05 07:06 | NUR ---
PATIENT SLEPT ALL NIGHT, BUT WAS HAVING A NIGHTMARE WHEN WOKEN FOR HER ANTIBIOTIC DOSE EARLY IN THE NIGHT.
[2017-03-05 08:10] VITALS: BP 140/96
--- NOTE | 2017-03-05 11:03 | CPS MD/APRN INITIAL ASSE PSYCH ---
Psychiatric Admission Hairspring Adjuster's Note Reviewed: Yes Patient Seen and Examined: Yes (was interviewed on 03/04/2017) Identifying Information: This is the 1st [facility] admission and the initial life-time psychiatric hospitalization for a 26-year-old single childless woman currently residing with her mother in a rented apartment in [place], [place]., (her 24-year-old niece lives "upstairs") and currently unemployed (had previously worked at [employer]--a good worker but became too ?anxious/phobic). Mother has COPD and patient "helps [her] a lot." Chief Complaint: "I was upset last night and it was taken out of proportion." Reaction to Hospitalization: voluntary (but submitted a "3-day paper" (request for termination of voluntary commitment) on the evening of 03/03/2017 History of Present Illness Onset of Illness: Patient was visited by local police after having sent a test message to a friend that she was thinking of taking an overdose on Xanax; that friend in turn alerted authorities, and police brought patient into the E.D. on a PEER. Though initially "mildly agitated" upon arrival in the E.D., she was later described as "calm and cooperative" and initially agreed to a voluntary hospitalization. Circumstances Leading to Admission: She became acutely upset over the pain from a "wisdom tooth that is coming in," the time it had been taking to get a needed "special" referral from her PCP to an oral surgeon and lack of pain relief from the ibuprophen she was using in the meantime; she then also drank 2 "nips" in hopes of improved analgesia as well as some Percocet not prescribed for her. In the above context she claims to have made some vague statements to an [id number] friend over the internet to the effect that she was thinking of taking all her pills and may already have consumed "14" pills, as well as some negative self-effacing remarks essentially of worthlessness. Problem(s) Justifying Need for Admission: --acute suicidal ideation with plan to overdose which she may already have started doing (took "14 pills"), though later denied any "real" intent to harm herself Other HPI: Patient may have lost a job due to escalating anxiety and also might be drinking more though still moderately at most but again related to increasing anxiety spectrum symptomatology. Past Psychiatric History Past Diagnosis(es)- if any: --Panic Disorder --OCD --Dysthymia Past Precipitating Factors- if any: --?relationship anxieties/difficulties/turmoil --?social phobia/agoraphobia resulting in increasing time spent at home with mother - Include inpatient and outpatient treatment Treatment History: Patient has been seen off and on for the past 3 years at [facility], continuous for over a year now; no history of inpatient or IOP treatments History of Suicide Attempts or Gestures denied Substance Abuse History: denied (but there may be some low level alcohol abuse, ?others); had cocaine in urine tox screen up to 698ng/ml but denied having "ever" used this drug, as well as morphine level of greater than 4,000ng/ml which would be very difficult to achieve using "Percocet" only (such high levels found with heroin/morphine or oral morphine sulfate) N.B. past urine tox. screening (4 times in 2007 and 2008) were completely negative for all drugs, including cannabis Allergies: Coded Allergies: Penicillins (Intermediate, DIZZY AND VOMIT 03/03/17) Home Med List: --amitriptyline, 35mg/day --Risperdal, 0.5mg/day --sertraline, 50mg (denies being on this due to "side effects") also: amlodipine, 2.5mg/day pantoprazole, 40mg/day - Include any medical condition(s) that may - impact the patient's recovery/remission Past History Medical History Neurological: NONE EENT: NONE, pain from wisdom tooth Cardiovascular: hypertension Respiratory: NONE Gastrointestinal: NONE, GERD Hepatic: NONE Renal: NONE Musculoskeletal: NONE Psychiatric: anxiety, depression, substance abuse (R/O more use than acknowledges) Endocrine: NONE Blood Disorders: NONE Cancer(s): NONE SPACE ENGINEER/Reproductive: NONE History of MRSA: No History of VRE: No History of CDIFF: No Isolation History: Standard Surgical History Surgical History: TONSILECTOMY UPPER WIDSOM TOOTH REMOV Psychiatric Family/Social Hx Family History Psychiatric Illness: unknown Substance Use: unknown Suicides: unknown Social History Living Situation: (see above, under "Identifying Information") Significant Relationships (family/friends): --close to mother --?close to niece who "lives upstairs" Education: dropped out of school in or after 8th grade related to bullying by others; working on GED Vocation/Occupation: unemployed Legal: denied [employer] Behaviors Screening Tobacco Screening Tobacco Use from ED Docu: Current Daily Use Daily Tobacco Use Amount/Type: => 5 Cigarettes daily - If tobacco counseling indicated - the following topics are required. - #1 Recognizing dangerous situations. - #2 Coping Skills. - #3 Basic information about quitting. Status of Tobacco Cessation Counseling: #1, #2 AND #3 Completed Cessation Med Status Nicotine Patch Ordered (7mg patch) Alcohol Screening - ETOH screen POS if BAL >=80 or Audit-C>= M4/F3 Audit-C Score from Diag Assess: 6 Blood Alcohol Level: Laboratory Tests 03/03 0045 Toxicology Serum Alcohol (<10 MG/DL) 36.0 Alcohol Use Screening Results: Neg per Audit C &/or BAL - If ETOH counseling indicated - the following topics are required. - #1 Express concern about the patient's - drinking at unhealthy levels, include informing - of national norms for moderate drinking: - men <= 14 drinks/week, max 4 drinks/occasion - women <= 7 drinks/week, max 3 drinks/occasion - #2 Providing feedback, including linking alcohol to - negative physical effects (liver injury, hypertension) - negative emotional effects (relationship problems and - depression) - negative occupational consequences (reduced work - performance) - #3 Advising the patient to abstain from alcohol or - to drink below national norms for moderate drinking - (as listed above). Status of ETOH Use Counseling: N/A B/C NO ETOH Use Metabolic Screening - Screen if on a Neuroleptic Medication - Metabolic screening should include: - Blood Pressure, BMI, Glucose or Hgb A1c, & a - Lipid profile from within the past 365 days. Metabolic Screening () Not Applicable, patient not on a neuroleptic. OR ([X]) Patient on a neuroleptic(s) . Enter below results for Glucose or Hemoglobin A1C, and lipid panel if obtained during the last 365 days. BMI: 36.100 Blood Pressure: 148/76 Laboratory Results (If applicable): [X] glucose = 109 (all drawn on 03/03/2017) glycos hgb A1c = 5.1 cholesterol = 177 triglycerides = 192 HDL = 37 LDL = 102 Exam and Plan Mental Status Examination Ambulation Status: without assistance Appearance: well groomed and neat Attitude towards examiner: positive Psychomotor activity: unremarkable Behavior: appropriate to situation/context Quality of speech: normal volume, rate, tone and prosody Affect: mildly constricted but generally normal range Mood: somewhat sad at current situation Suicidal Ideation: denied; in fact, asserted that she had not been suicidal at any time before or after arrival in [facility] Homicidal Ideation: denied Hallucinations: denied Paranoid/Delusional Material: none evident Difficulties with thought organization: not noted; perhaps slightly circumstantial at first Insight: limited at present but eager to figure things out Judgment: fair INTERIOR DECORATOR PAINTING; good currently Orientation: full Cognition: no evidence of gross global or discrete deficits Memory Function: unimpaired Estimate of intellectual functioning: average Assets/Strengths Patient Identified Assets/Strengths: --a good, organized worker --wants to get a job Impression/Plan Impression and Plan: This patient's level of functioning in work/social life appears to have been impaired and possibly increasingly by anxiety spectrum symptomatology and possibly anxiety/depression. She presents in a manner which would suggest an ability to function at a significantly higher level than she has been able to achieve/sustain to date, is unemployed, is still working on her GED at 26-years- of-age. There might be more underlying pathology than meets the eye at first glance. I find myself wondering why this young woman is on low dose Risperdal as there seems to be no evidence of thought disorder at any level. Perhaps if we knew more about the family pedigree and after a family meeting (including niece, if possible) the picture might be more clear. It is said that patient "takes care of" her mother who's said to have "COPD." How much are they overly and inappropriately attached/enmeshed in their relationship and is this limiting patient's ability/freedom to grow as an adult? The first step seems to be to optimally treat anxiety/depression spectrum symptoms. Tricyclics are good treatment for depression/panic and other anxiety disorders but current dose is quite low; patient might not be able to tolerate this TCA at a higher dose in which case switchover might be made to nortriptyline for fewer anti-cholinergic side effects and a "therapeutic window" of efficacy. Again, we need to know why this patient "needs" Risperdal. Patient would be a good candidate for the behavioral health IOP for help with socialization/social skills, more positive self-talk/cognitive restructuring, ?future referral to DBT. There appears to be more to this patient's story than is evident superficially/ on the surface. - Include all active medical diagnosis that require tx DSM 5 Diagnosis(es): --Unspecified Anxiety Disorder with multiple anxiety spectrum symptoms, including panic, social phobia/agoraphobia, generalized anxiety, OCD --R/O Unspecified Depressive Disorder, also with prominent/multiple anxiety symptoms --possible alcohol use disorder, at least mild --unexplained significant levels of cocaine and morphine in urine tox screen, ? etiolog(ies) R/O thyroid disorder R/O Unspecified and as yet mild bipolar spectrum disorder --Nicotine Use Disorder - Initial Tx Plan for Active Psych & Medical Conditions Treatment Plan: --obtain TCA level on current dose of amitriptyline --raise amitriptyline dose to better address sleep difficulties, anxiety and depressive symptomatology (from 35mg to 50mg to begin with) --limit or discontinue continued use of Vistaril for sleep and anxiety --consider holding low dose Risperdal (or better ascertain why it is needed) --organize a family meeting with mother (and, if possible, niece) --refer to behavioral health IOP --continue to work on smoking cessation - Factors that would help patient function - in a less restrictive setting. Factors: --acceptance of prompt referral to IOP --significant explication of underlying problems/issues in family meeting and organizing/holding a family meeting as soon as possible
[2017-03-05 12:05] VITALS: BP 139/77
--- NOTE | 2017-03-05 14:17 | NUR ---
PT HAS BEEN WITHIN THE COMMUNITY FOR A MAJORITY OF THE DAY, MOOD IS STABLE WITH FULL RANGE AFFECT, HAS BEEN SOCIAL AND APPROPRIATE WITH PEERS AND STAFF. MEDICATION AND TREATMENT COMPLIANT, NO ISSUES OR COMPLAINTS REPORTED OR OBSERVED, ATTENDED PLANNING MEETING AND REPORTED + SLEEP AND GOAL WAS TO RELAX AND HAVE A GOOD DAY.
[2017-03-05 15:30] VITALS: BP 148/76
--- NOTE | 2017-03-05 19:11 | NUR ---
PT HAS BEEN CONSTRICTED AND WITHDRAWN BUT REMAINS PRESENT IN THE MILEU. AT TIMES PT CAN REPORT FEELINGS OF ANXIETY AND THAT SHE FEELS "OVERWHELMED" BY LIFE. PT HAS BEEN COMPLIANT WITH RULES AND STAFF DIRECTION. PT HAS DENIED ANY THOUGHTS OF SI WHEN ASKED AND HAS BEEN ENCOURAGED TO TALK TO STAFF IF FEELINGS OR EMOTIONS CHANGE THROUGH THE EVENING SHIFT.
[2017-03-05 20:59] VITALS: BP 145/76
--- NOTE | 2017-03-05 23:49 | CP SOUTH PROGRESS NOTE PSYCH ---
Psych (Inpt) Progress Note Progress Note Progress Note: SUBJECTIVE: Pt reports that she is feeling "very good," about to eat and sleep well, med adherent without s/e. Reports some wisdom tooth pain with tooth eruption, tylenol managing fine. Denies SI/HI/AVH/SIB. Denies abnormal movements. States that the staff have been "really, really nice...they help out a lot" and is getting long with peers. Pt discussed plans for outpt appts next week, looking forward to al. Requests increase in nicotine patch and sore throat lozenges, ordered. OBJECTIVE: Per nursing, pt slept well overnight. Adherent with meds and staff instructions, in behavioral control. MEDS: Current Medications Sig/Alexandre Start time Last Medication Dose Stop Time Status Admin Acetaminophen 650 MG Q6P PRN 03/03 1045 AC 03/04 (Tylenol) 1802 Al Hydroxide/Mg 30 ML Q4-6 PRN PRN 03/03 1045 AC 03/05 Hydroxide 0820 (Maalox Plus) Amitriptyline HCl 50 MG 03/04 2200 AC 03/05 (Elavil 50 MG Tablet) 2307 Amlodipine Besylate 2.5 MG DAILY 03/03 1000 AC 03/05 (Norvasc) 0821 Baclofen 10 MG Q6P PRN 03/03 1100 AC (Lioresal 10MG Tablet) Benzocaine/Menthol 1 POOL .[Q4H PRN] PRN 03/05 2300 AC 03/05 (Chloraseptic 2257 Lozenges) Clindamycin 300 MG Q6 03/03 0056 AC 03/05 (Cleocin 150MG Cap) 2307 Clonidine 0.1 MG Q6P PRN 03/03 1100 AC (Catapres) Dicyclomine HCl 20 MG Q6P PRN 03/03 1100 AC (Bentyl) Gabapentin 300 MG Q6P PRN 03/03 1045 AC 03/03 (Neurontin) 205 Hydroxyzine HCl 50 MG Q6P PRN 03/03 1045 AC 03/04 (Atarax) 2249 Hydroxyzine HCl 50 MG AT BEDTIME NEED.. 03/03 0100 AC 03/05 (Atarax) 2307 Lorazepam 2 MG Q2P PRN 03/03 1045 AC (Ativan) Lorazepam 1 MG Q2P PRN 03/03 1045 AC (Ativan) Magnesium Hydroxide 30 ML AT BEDTIME PRN 03/03 1045 AC (Milk Of Magnesia) Multivitamins 1 TAB DAILY 03/03 1042 AC 03/05 (Theragran Vitamins) 0821 Nicotine 14 MG DAILY 03/06 1000 AC (Nicotine Cq) Risperidone 0.5 MG BID 03/03 1043 AC 03/05 (Risperidone) 2307 Vital Signs Date Time Temp Pulse Resp B/P B/P Pulse O2 O2 Flow FiO2 Mean Ox Delivery Rate 03/05 2059 98.9 101 145/76 03/05 1530 99 148/76 03/05 1205 96 139/77 03/05 0821 85 140/96 03/05 0810 97.5 85 140/96 LABS: Amitriptyline level drawn today, pending. MSE: GEN: A&O, cooperative, pleasant, engaging, with facial piercings, clean clothes , good eye contact, NAD SPEECH: moderate rate, volume, fluent MOTOR: no tics, tremor, stereotypy or abnormal movements MOOD: "Really good today" AFFECT: happy, congruent, good range, nonlabile, well-related TP: logical, linear, goal-directed TC: denies SI/HI/AVH,SIB, no apparent delusions, paranoia, grandiosity, obsessions, ruminations COG: no apparent deficits in memory, attention, concentration J/I: good/fair A&P: 26 yo F with bipolar disorder admitted for SI via text messages. Today, pt appears well, engaging with staff and peers, med adherent, no SI. -cont meds above, increase tracy patch to 14 mg -start benzocaine lozenge for sore throat -maintain safety, vs tid, q15 min checks -f/y amitriptyline level Sun, see Dr Jorge note for consideration on switching to nortriptyline -[facility] f/u per Medicine for HTN -cont plan/dispo as per primary team
--- NOTE | 2017-03-06 06:13 | NUR ---
PT HAD NORTRIPTYLINE BLOODWORK DONE AT 2100 ON TUESDAY NIGHT. PT SLEPT. PT WOULD LIKE COUGH DROPS AND 21 MG NICODERM PATCH.
[2017-03-06 08:31] VITALS: BP 132/73
[2017-03-06 12:09] VITALS: BP 144/82
--- NOTE | 2017-03-06 12:52 | NUR ---
PT IS STABLE WITH FULL RANGE OF AFFECT. VISIBLE WITHIN THE COMMUNITY AND INTERACTING WITH PEERS/STAFF. PT IS PLEASANT, COOPERATIVE, COMPLIANT AND CALM. PT IS APPROPRIATE TO THE UNIT. ATTENDING MOST GROUPS THIS AM. PT PASSES TIME BY COLORING AND DRAWING. VS ARE STABLE AND DENIES ANY SI/HI TO THIS MHW.
[2017-03-06 15:29] VITALS: BP 139/92
--- NOTE | 2017-03-06 18:52 | NUR ---
PT HAS DISPLAYED A FULL RANGE AFFECT. SHE IS PLEASANT TOWARDS STAFF AND PEERS AND HAS EXPRESSED A GREAT LEVEL OF SELF AWARENESS TOWARDS HER SITUATION. PT USES COPING SKILLS BY COLORING IN THE KITCHEN AND WATCHING TV WITH OTHERS. PT HAS DENIED ANY THOUGHTS OF SI WHEN ASKED BY STAFF.
--- NOTE | 2017-03-06 19:39 | CP SOUTH PROGRESS NOTE PSYCH ---
Psych (Inpt) Progress Note Progress Note Progress Note: SUBJECTIVE: Pt continued to feel well today, looking forward to family meeting tomorrow at 11am with mother present to discuss dispo. States she has appointments with therapist and psychiatrist on and Tue. Eating and sleeping well, med adherent without s/e. [place] tooth pain has resolved and she has dental appt for after dc. Denies SI/HI/AVH/SIB. Denies abnormal movements. Enjoying socializing with peers. NRT has helped, discussed smoking cessation. Doesnt feel any changes need to be made today. OBJECTIVE: Per nursing, pt slept well overnight. Adherent with meds and staff instructions, in behavioral control. Current Medications Sig/Alexandre Start time Last Medication Dose Stop Time Status Admin Acetaminophen 650 MG Q6P PRN 03/03 1045 AC 03/04 (Tylenol) 1802 Al Hydroxide/Mg 30 ML Q4-6 PRN PRN 03/03 1045 AC 03/05 Hydroxide 0820 (Maalox Plus) Amitriptyline HCl 50 MG 03/04 2200 AC 03/05 (Elavil 50 MG Tablet) 2307 Amlodipine Besylate 2.5 MG DAILY 03/03 1000 AC 03/06 (Norvasc) 1011 Baclofen 10 MG Q6P PRN 03/03 1100 AC (Lioresal 10MG Tablet) Benzocaine/Menthol 1 POOL Q4P PRN 03/06 0015 AC 03/06 (Chloraseptic 1011 Lozenges) Clindamycin 300 MG Q6 03/03 0056 AC 03/06 (Cleocin 150MG Cap) 1856 Clonidine 0.1 MG Q6P PRN 03/03 1100 AC (Catapres) Dicyclomine HCl 20 MG Q6P PRN /06 1100 AC (Bentyl) Gabapentin 300 MG Q6P PRN / 1045 AC 03/03 (Neurontin) 2056 Hydroxyzine HCl 50 MG Q6P PRN 03/03 1045 AC 03/04 (Atarax) 2249 Hydroxyzine HCl 50 MG AT BEDTIME NEED.. 03/03 0100 AC 03/05 (Atarax) 2307 Lorazepam 2 MG Q2P PRN 03/03 1045 AC (Ativan) Lorazepam 1 MG Q2P PRN / 1045 AC (Ativan) Magnesium Hydroxide 30 ML AT BEDTIME PRN 03/03 1045 AC (Milk Of Magnesia) Multivitamins 1 TAB DAILY 03/03 1042 AC 03/06 (Theragran Vitamins) 1011 Nicotine 14 MG DAILY 03/06 1000 AC 03/06 (Nicotine Cq) 1010 Risperidone 0.5 MG BID 03/03 1043 AC 03/06 (Risperidone) 1011 Vital Signs Date Time Temp Pulse Resp B/P B/P Pulse O2 O2 Flow FiO2 Mean Ox Delivery Rate 03/06 1529 99 139/92 03/06 1209 94 144/82 03/06 1011 89 132/73 03/06 0831 98.5 89 132/73 03/05 2059 98.9 101 145/76 LABS: Amitriptyline/nortyiptyline levels drawn yesterday, pending. MSE: GEN: A&O, cooperative, pleasant, engaging, with facial piercings, clean clothes , good eye contact, NAD SPEECH: moderate rate, volume, fluent MOTOR: no tics, tremor, stereotypy or abnormal movements MOOD: "Pretty good" AFFECT: pleasant and engaging, congruent, good range, nonlabile, well-related TP: logical, linear, goal-directed TC: denies SI/HI/AVH,SIB, no apparent delusions, paranoia, grandiosity, obsessions, ruminations COG: no apparent deficits in memory, attention, concentration J/I: good/fair A&P: 26 yo F with bipolar disorder admitted for SI via text messages. Pt continues to do well over the weekend and looking forward to family mtg to discuss dispo. -cont meds above -maintain safety, vs tid, q15 min checks -f/y amitriptyline level Sun, see Dr Jorge note for consideration on switching to nortriptyline -[facility] f/u per Medicine for HTN and dental for wisdom tooth pain -family meeting aticipated for 11am Tuesday per pt. -cont plan/dispo as per primary team,
[2017-03-06 20:31] VITALS: BP 149/80
--- NOTE | 2017-03-06 23:30 | NUR ---
WATCHED T.V. THIS EVENING WITH PEERS, QUIET EVENING SPENT. TOLERATED VISIT FROM MOM WELL. COMPLIANT WITH MEDS, APPROPRIATE QUESTIONING NOTED AROUND MEDS AND THEIR USE. GOOD EVENING SPENT.
[2017-03-07 08:16] VITALS: BP 135/85
[2017-03-07 09:02] VITALS: BP 135/85
--- NOTE | 2017-03-07 11:08 | NUR ---
WILL BE DISCHARGED TODAY TO [facility] WITH FOLLOW UP W/ HER PREVIOUS LEAN MANAGER. MOOD IS STABLE, FULL RANGE OF AFFECT. DENIES THOUGHTS OF SELF HARM WHEN ASKED.
[2017-03-07] MEDS ORDERED: NICOTINE PATCH1 EAC2 TOP (11:21)
[2017-03-07] MEDS ORDERED: HYDROXYZINE HCL50 M1 PO (11:21)
[2017-03-07] MEDS ORDERED: AMITRIPTYLINE H50 M2 PO (11:21)
[2017-03-07] MEDS ORDERED: RISPERDAL1 M1 PO (11:21)
[2017-03-07] MEDS ORDERED: ONE DAILY MULT1 EAC2 PO (11:21)
[2017-03-07] MEDS ORDERED: AMLODIPINE BES2.5 M1 PO (11:21)
--- NOTE | 2017-03-07 11:31 | Patient Discharge Instructions ---
Psych Discharge Inst General Discharge Information Reason for Admission: Concern about possible overdose (patient denies overdosing). Psy Discharge Primary Diag+ Unspecified anxiety d/o Psy Discharge Secondary Diag+ Alcohol use d/o Cocaine use d/o R/o opiate use d/o Hx OCD Hx dysthymia Tooth pain/infection Hypertension Summary Tests/Major Procedures Random glucose 109. Chloride 109 H CO2 15 L Anion gap 17 H Cholesterol 177 WNL Triglycerides 192 H HDL 37 L LDL 102 WNL SGOT 38 H TSH 5.150 H Total T3 1.57 WNL Free T4 1.52 WNL EtOH 36.0 HCG negative. Glycohemoglobin 5.1 WNL Chol/HDL ratio 5 H WBC 12.3 H Urine drug screen positive for cocaine and opiates/morphine Studies Pending at [place]: Amitriptyline level. Please call [phone] for result. Patient Instructions Contact Information Your Psychiatrist on [facility] was ELIU ADAMS,COSMO * If you are experiencing an emergency related to this hospitalization, please call [phone] to contact the treating psychiatrist or the psychiatrist-on- call. * To Request a copy of your medical records, please contact the Medical Records Department at [phone]. * To request results of studies pending at the time of discharge, please call [phone]. * Continue your Medications until directed to stop by your Healthcare provider. General Medication Information Please continue to take your new medications and your continued home medications , unless otherwise indicated on your discharge medication list, or unless directed by your MD or LATHE SCALPER OPERATOR to stop them. Special Instructions: Please follow up with dentist/oral surgeon Please follow up with PCP at [facility] for abnormal labs listed above and for hypertension. Stay away from drugs and alcohol. Please call [phone] for pending Amitriptyline level. Please see PCP if sore throat issue does not clear. Advance Directives Does the Patient have Medical Advance Directives No/Refused further info Does Pt have Psychiatric Advance Directives? No/Refused further info Does Patient have a Designated Surrogate Decision Maker: No Information About Psychiatric Advance Directives Provided? Refused Discharge Plan Post Hospital Treatment Plan: Follow up at [facility], at [facility] and with [facility].
--- NOTE | 2017-03-07 11:42 | SOCIAL WORKER PROG NOTE PSYCH ---
Social Work Progress Note Progress Note Josseline reported having a good weekend. Josseline's Mother and Sister Barbara came in for a family meeting today. Neither had concerns over Josseline's safety and well being prior to admission. Josseline lives with Mom at home and helps as a primary vp construction due to her having COPD. Both were surprised by her admission here. Both deny any knowledge of problems with substance use. They believe that all of this stemmed from a problem with her wisdom tooth pain. Josseline reports really no pain today due to her tooth. She says that the antibiotic she was given was helpful. Josseline reports that she likes going to [facility] and finds meeting with Karine Martins helpful. She refused IOP at this time, stating she didn't feel she needed that level of care. Josseline plans to follow up with [facility] for her 2 appts. this week. I shared that we have a smoking cessation group at [place] and she can go to an appt. on 03/23 at 4pm. Josseline was given a card for that. Affect was calm and pleasant with no complaints today. Josseline remained patient after the family meeting while we worked on her discharge paperwork.
--- NOTE | 2017-03-07 16:14 | CP SOUTH PROGRESS NOTE PSYCH ---
Psych (Inpt) Progress Note Progress Note Include the following elements, when applicable: Involvement in the active treatment of the patient with behavioral observations of the patient and the patient's response to the treatment. Review of the ongoing treatment process in the context of the treatment plan. Indication of how multi-disciplinary staff members are carrying out the treatment plan. Plans for future interventions and recommendations for revision of the treatment plan. Liaison with other physicians/providers. Progress Note: Medication list reviewed. Dr. Alvarado's notes reviewed. Case and treatment plan discussed in team meeting. Staff reports that the patient denied taking #14 ibuprofen. Family meeting was scheduled with mother for 11 AM today. Patient will be seeing clinician and prescriber at [facility] this week. Staff reports patient is doing okay. Patient seen at 10:54 AM. She is overweight. She has bright clothing on. Patient reports she was home on 03/02/17 and had tooth pain and was taking ibuprofen and decided to drink 2 nips of whiskey. She was texting with her friend in [place] and said that she had taken pills. Reports she had taken #3 ibuprofen 600 mg. She reports she then went on to do some cleaning and her friend in [place] could not reach her by phone and he got concerned and called 911. Police arrived and they smelled alcohol on her. Patient denies having overdosed. Affect is calm and blunted to euthymic. Feels good. Has no complaints. Mood is "good, I'm happy." Rates sad mood 0/10 and anxiety 0/10. Denies feeling hopeless, helpless, worthless or guilty. Denies active and passive suicidal ideation. Denies homicidal ideation. Denies auditory and visual hallucinations. Denies paranoid ideation and magical holbrook. Oriented 3. Reports sleep is very good. Appetite: reports she is eating a little more because of the options on the menu. Reports energy is good. Feels ready and safe for discharge. Patient denies sore throat now. States her throat is raspy but is not hurting. I advised her to see her PCP if her throat does not clear. IMPRESSION: Condition improved. Okay for discharge today with follow-up as above.
--- NOTE | 2017-03-07 16:21 | DISCHARGE SUMMARY REPORT-PSYCH ---
Visit Information Visit Dates/Diagnosis' Admission Date: 03/03/17 Discharge Date: 03/07/17 Reason for Admission: Concern about possible overdose (patient denies overdosing). Psy Discharge Primary Diag: Unspecified anxiety d/o Psy Discharge Secondary Diag: Alcohol use d/o Cocaine use d/o R/o opiate use d/o Hx OCD Hx dysthymia Tooth pain/infection Hypertension Hospital Course Significant Lab Findings: Random glucose 109. Chloride 109 H CO2 15 L Anion gap 17 H Cholesterol 177 WNL Triglycerides 192 H HDL 37 L LDL 102 WNL SGOT 38 H TSH 5.150 H Total T3 1.57 WNL Free T4 1.52 WNL EtOH 36.0 HCG negative. Glycohemoglobin 5.1 WNL Chol/HDL ratio 5 H WBC 12.3 H Urine drug screen positive for cocaine and opiates/morphine Course Complications: None. Consultations: Patient was seen by Dr. Marguerite Call for admission H&P. Please refer to her note for additional information. Allergies: Coded Allergies: Penicillins (Intermediate, DIZZY AND VOMIT 03/03/17) Hospital Course/TX Response: The patient was monitored on the unit for safety and mood disorder. She participated in multi-modal treatments on the unit. Amitriptyline dose was increased from 35 mg qhs to 50 mg qhs. Prn's of baclofen, Bentyl, clondidine and gabapentin were available. Risperdal was increased to 0.5 mg b.i.d. Amlodipine and hydroxyzine were continued. Mood and affect have imrpvoed. Suicidal ideation has remitted. Progress note from date of discharge, 03/07/17: Medication list reviewed. Dr. Alvarado's notes reviewed. Case and treatment plan discussed in team meeting. Staff reports that the patient denied taking #14 ibuprofen. Family meeting was scheduled with mother for 11 AM today. Patient will be seeing clinician and prescriber at [facility] this week. Staff reports patient is doing okay. Patient seen at 10:54 AM. She is overweight. She has bright clothing on. Patient reports she was home on 03/02/17 and had tooth pain and was taking ibuprofen and decided to drink 2 nips of whiskey. She was texting with her friend in [place] and said that she had taken pills. Reports she had taken #3 ibuprofen 600 mg. She reports she then went on to do some cleaning and her friend in [place] could not reach her by phone and he got concerned and called 911. Police arrived and they smelled alcohol on her. Patient denies having overdosed. Affect is calm and blunted to euthymic. Feels good. Has no complaints. Mood is "good, I'm happy." Rates sad mood 0/10 and anxiety 0/10. Denies feeling hopeless, helpless, worthless or guilty. Denies active and passive suicidal ideation. Denies homicidal ideation. Denies auditory and visual hallucinations. Denies paranoid ideation and magical holbrook. Oriented 3. Reports sleep is very good. Appetite: reports she is eating a little more because of the options on the menu. Reports energy is good. Feels ready and safe for discharge. Patient denies sore throat now. States her throat is raspy but is not hurting. I advised her to see her PCP if her throat does not clear. IMPRESSION: Condition improved. Okay for discharge today with follow-up as above. Discharge HBIPS - Tobacco Use Treatment Offered Post DC Medications Offered: Script Given-See Med List (Jaclyn) Post DC Tobacco Treatment Plan: [facility] Program Appt Date: 03/23/17 Program Appt Time: 1600 - EtOH/Drug Use D/O Treatment Offered Post DC Medications Offered: Med Not Indicated for D/O Post DC EtOH/SubAbuse TX Plan: Refused Post DC Tx Pgm Metabolic Screening - Screen if on a Neuroleptic Medication - Metabolic screening should include: - Blood Pressure, BMI, Glucose or Hgb A1c, & a - Lipid profile from within the past 365 days. Metabolic Screening () Not Applicable, patient not on a neuroleptic. OR () Patient on a neuroleptic(s) . Enter below results for Glucose or Hemoglobin A1C, and lipid panel if obtained during the last 365 days. BMI: 36.100 Blood Pressure: 135/85 Laboratory Results (If applicable): Lab Cholesterol 177 MG/DL 03/03/17 0045 Cholesterol/HDL Ratio 5 % H 03/03/17 0045 Glucose 109 mg/dL H 03/03/17 0045 HDL Cholesterol 37 mg/dL L 03/03/17 0045 Hemoglobin A1c 5.1 % 03/03/17 0045 LDL Cholesterol, Calc 102 mg/dL 03/03/17 0045 Triglycerides 192 mg/dL H 03/03/17 0045 Discharge Instructions General Discharge Information Discharge Medications: Discharge Medications- (Dose, route, freq, indication): HOME MEDICATION LIST START taking these NEW Home Medications: Nicotine (Nicotine Dose: On the skin, DAILY for Qty: 14 Sent to Patch) 14 MG/24 HOUR 14 Milligram smoking cessation Refills: 0 Pharm 1 PATCH.TD24 Amitriptyline HCl Dose: ORAL, 2200 for Qty: 14 Sent to (Amitriptyline HCl) 50 Milligram anxiety/depression Refills: 0 Pharm 1 50 MG TABLET Risperidone Dose: ORAL, TWICE DAILY for Qty: 28 Sent to (Risperdal) 1 MG 0.5 Milligram clear thoughts Refills: 0 Pharm 1 TABLET Hydroxyzine HCl Dose: ORAL, AT BEDTIME as Qty: 14 Sent to (Hydroxyzine HCl) 50 50 Milligram needed for SLEEP Refills: 0 Pharm 1 MG TABLET Multivitamin (One Dose: ORAL, DAILY for vitamin Qty: 14 Sent to Daily Multivitamin) 1 Tablet supplement Refills: 0 Pharm 1 1 EACH TABLET CONTINUE taking these Home Medications: Amlodipine Besylate Dose: ORAL, DAILY for HTN Renewed Sent (Amlodipine Besylate) 2.5 Milligram to Pharm 1 2.5 MG TABLET STOP taking these DISCONTINUED Home Medications: Amitriptyline HCl Dose: ORAL, DAILY for MENTAL HEALTH (Amitriptyline HCl) 10 MG 10 Milligram Reason Stopped: Changed Dose TABLET Amitriptyline HCl Dose: ORAL, DAILY for MENTAL HEALTH (Amitriptyline HCl) 25 MG 25 Milligram Reason Stopped: Changed Dose TABLET Risperidone (Risperidone) 0.5 Dose: ORAL, DAILY for MENTAL HEALTH MG TABLET 0.5 Milligram Reason Stopped: Changed Dose Hydroxyzine Pamoate Dose: ORAL, THREE TIMES DAILY as (Hydroxyzine Pamoate) 50 MG 50 Milligram needed for ANXIETY/INSOMNIA CAPSULE Reason Stopped: Changed how often to take 1: [id number], [address] [place] [address] Multiple Neuroleptics: ([x]) Not Applicable OR Document below three failed attempts at monotherapy, or a plan to taper to monotherapy, or augmentation of Clozapine. () Patient's Diet: Regular. Patient's Activity: No restrictions. DC Disposition: Home with mother. Recommendations: Please follow up with dentist/oral surgeon Please follow up with PCP at [facility] for abnormal labs listed above and for hypertension. Stay away from drugs and alcohol. Please call [phone] for pending Amitriptyline level. Please see PCP if sore throat issue does not clear. Referred To: Mamadou Martins (therapist) 03/09/17 at 11:30. Mamadou Barnett APRN 03/08/17 at 2pm. [facility] 03/23/17 at 4 pm. Copies To: JAE Manning,CAYLA
== END 2017-03-07 12:05 | DRG 756 ==
LOC: ERH 00:18 → ERHI 10:37 → CP SOUTH 10:37 → ENTRNSPT 11:32 → EDTRNSPTSTS 11:58 → EDTRNSPT 11:58 → CP SOUTH 12:05 → CMPTRNSPT 12:10 → CP SOUTH 03-04 09:46
PROVIDERS: Pediatrics; ADMIT Psychiatry & Neurology Psychiatry
DX: F41.9 Anxiety disorder, unspecified (principal); Z72.89 Other problems related to lifestyle; F14.90 Cocaine use, unspecified, uncomplicated; F42.9 Obsessive-compulsive disorder, unspecified; F34.1 Dysthymic disorder; K04.7 Periapical abscess without sinus; I10 Essential (primary) hypertension
CPT/HCPCS: 36415; 80307; 93005; 93010; G0480; J3490

== ENCOUNTER 2018-01-30 04:33 | Emergency (ER) | payer OTHER ==
[~2018-01-30] VITALS: Ht 162.6 cm; Wt 90.7 kg
[~2018-01-30 04:33] MED LIST changes: +AMITRIPTYLINE H10 M2 PO; +AMITRIPTYLINE H25 M2 PO; +AMITRIPTYLINE H50 M2 PO; +AMLODIPINE BES2.5 M1 PO; +HYDROXYZINE HCL50 M1 PO; +HYDROXYZINE PAM50 M1 PO; +NICOTINE PATCH1 EAC2 TOP; +ONE DAILY MULT1 EAC2 PO; +PANTOPRAZOLE SO40 M1 PO; +RISPERDAL1 M1 PO; +RISPERIDONE0.5 M1 PO; +SERTRALINE HCL50 MG PO
--- NOTE | 2018-01-30 04:38 | ED GENERAL ADULT ---
History of Present Illness General Chief Complaint: Headache Stated Complaint: HEADACHE Source: patient, EMS Exam Limitations: no limitations Vital Signs & Intake/Output Vital Signs & Intake/Output Vital Signs Date Time Temp Pulse Resp B/P B/P Pulse O2 O2 Flow FiO2 Mean Ox Delivery Rate 01/30 0450 98.8 104 16 168/88 01/30 0436 98.8 104 16 168/ 98 Room Air Allergies Coded Allergies: Penicillins (Intermediate, DIZZY AND VOMIT 03/03/17) Reconcile Medications Amitriptyline HCl 50 MG TABLET 50 MG PO 2200 anxiety/depression Amlodipine Besylate 2.5 MG TABLET 2.5 MG PO DAILY HTN Hydroxyzine Hydrochloride (Atarax) 50 MG TABLET 50 MG PO AT BEDTIME PRN SLEEP Ibuprofen 800 MG TABLET 1 TAB PO TID PRN pain Multivitamin (One Daily Multivitamin) 1 EACH TABLET 1 TAB PO DAILY vitamin supplement Nicotine (Nicotine Patch) 14 MG/24 HOUR PATCH.TD24 14 MG TOP DAILY smoking cessation Risperidone (Risperdal) 1 MG TABLET 0.5 MG PO BID clear thoughts Triage Note: DARLENE FROM [facility] IN [place] FOR CHIEF COMPLAINT OF HEADACHE X 1 HOUR. PATIENT STATES "I HAVENT BEEN TAKING MY BLOOD PRESSURE MEDICATION THAT IM SUPPOSED TO". PATIENT IS ALERT, ORIENTED, REPORTS PAIN TO TEMPORAL ASPECT OF HEAD. Triage Nurses Notes Reviewed? yes Onset: Gradual Duration: hour(s): Timing: recent history Injury Environment: home Severity: mild Modifying Factors: Improves With: rest. Associated Symptoms: Nausea and photophobia HPI: 27-year-old woman in prior good health, history of cigarette smoking, presents with a diffuse headache for one hour. She shares that she was drinking tonight. She developed a headache and walked to the [employer]. She then called 911. She notes mild photophobia and nausea. She notes also that she missed taking her amlodipine today. She notes pain in her right lower wisdom tooth. "I have an appointment at [facility]" She has had no trauma, vision changes, dizziness, diaphoresis. She is otherwise well and has no other concerns. Past History Travel History Traveled to [place] past 21 day No Medical History Any Pertinent Medical History? see below for history Neurological: NONE EENT: NONE, pain from wisdom tooth Cardiovascular: hypertension Respiratory: NONE Gastrointestinal: NONE, GERD Hepatic: NONE Renal: NONE Musculoskeletal: NONE Psychiatric: anxiety, depression, substance abuse (R/O more use than acknowledges) Endocrine: NONE Blood Disorders: NONE Cancer(s): NONE [employer]/Reproductive: NONE History of MRSA: No History of VRE: No History of CDIFF: No Surgical History Surgical History: non-contributory Psychosocial History Who do you live with Mother What is your primary language Khmer Family History Hx Contributory? No Review of Systems Review of Systems Constitutional: Reports: no symptoms. EENTM: Reports: no symptoms. Respiratory: Reports: no symptoms. Cardiovascular: Reports: no symptoms. GI: Reports: no symptoms. Genitourinary: Reports: no symptoms. Musculoskeletal: Reports: no symptoms. Skin: Reports: no symptoms. Neurological/Psychological: Reports: no symptoms. Hematologic/Endocrine: Reports: no symptoms. Immunologic/Allergic: Reports: no symptoms. All Other Systems: Reviewed and Negative Physical Exam Physical Exam General Appearance: mild distress Comments: Review of Systems - except as otherwise noted in HPI All Other Systems: Reviewed and Negative Physical Exam Physical Exam General Appearance: well developed/nourished, mild distress Head: atraumatic, normal appearance, scalp musculature tenderness to palpation. Eyes: Bilateral: normal appearance. Ears, Nose, Throat: normal pharynx, normal ENT inspection..slightly impacted right lower wisdom tooth. no sign of infection. Neck: normal inspection, supple, full range of motion Respiratory: normal breath sounds, chest non-tender, no respiratory distress, quiet respiration, lungs clear Cardiovascular: regular rate/rhythm Gastrointestinal: normal bowel sounds, soft, non-tender, no organomegaly Back: normal inspection, normal range of motion Extremities: normal inspection, normal capillary refill, normal range of motion, no edema Neurologic/Psych: no motor/sensory deficits, awake, alert, oriented x 3 Skin: intact, normal color, warm/dry Core Measures ACS in differential dx? No CVA/TIA Diagnosis: No Sepsis Present: No Sepsis Focused Exam Completed? No Progress Differential Diagnoses I considered the following diagnoses in my evaluation of the patient: Tension headache versus migraine headache versus alcohol induced headache versus hypertension related headache versus other Plan of Care: Current Medications Sig/Alexandre Start time Last Medication Dose Stop Time Status Admin Acetaminophen 975 MG ONCE ONE 01/30 445 UNVr 01/30 (Tylenol) 01/30 446 0450 Amlodipine Besylate 10 MG ONCE ONE 01/30 445 UNVr 01/30 (Norvasc) 01/30 0446 0450 Cyclobenzaprine HCl 10 MG ONCE ONE 01/30 445 UNVr 01/30 (Flexeril 10MG Tab) 01/30 446 045 Ibuprofen 800 MG ONCE ONE 01/305 UNVr 01/30 (Motrin) 01/30 0446 0450 Ondansetron HCl 4 MG ONCE ONE 01/30 445 UNVr 01/30 (Zofran) 01/30 0446 0450 Initial ED EKG: none Departure Departure Disposition: HOME OR SELF CARE Condition: Stable Clinical Impression Primary Impression: Headache Secondary Impressions: Hypertension, Pain, dental Referrals: Brooke Oviedo APRN (PCP/Family) Departure Forms: Customer Survey General Discharge Information Prescriptions: Current Visit Scripts Ibuprofen 1 TAB PO TID PRN pain #30 TAB Comments 6\\4\\18, 5:25AM... feeling better after supportive medications... encouraged close follow up with dentist and regular administration of bp meds. close follow up advised. Critical Care Note Critical Care Note Critical Care Time: non-applicable
[2018-01-30 04:50] VITALS: BP 168/88
[2018-01-30] MEDS ORDERED: IBUPROFEN800 M1 PO (05:24)
== END 2018-01-30 05:29 ==
LOC: ERH 04:33
DX: R51 Headache (principal); I10 Essential (primary) hypertension; K08.89 Other specified disorders of teeth and supporting structures
CPT/HCPCS: J3101